=== PATIENT | female | born 1975 | race Caucasian/White ===

== ENCOUNTER 2022-03-10 09:42 | Emergency (ER) | payer OTHER, SELFPAY ==
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
[2022-03-10 09:48] VITALS: BP 145/92; PULSE 112; RESP 20; TEMP 36.8; O2SAT 97; BMI 40.7
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
--- NOTE | 2022-03-10 12:21 | PC.NURSE ---
PT EVALUATED BY PROVIDER. PT AWAKE, ALERT AND ORIENTED X 3. SKIN WARM AND DRY., RESP UNLABORED. DENIES N/V. NO ACUTE DISTRESS NOTED. +CMS, AMBULATORY , GAIT STEADY
== END 2022-03-10 12:23 | disposition home or self-care (01) ==
PROVIDERS: Emergency Provider Emergency Medicine
DX: M54.2 Cervicalgia (principal); M25.562 Pain in left knee
CPT/HCPCS: 72040; 73564; 99282; 99283

== ENCOUNTER 2024-07-23 13:00 | Outpatient (AMB) | payer BC, SELFPAY ==
--- NOTE | 2024-07-23 13:07 | MHC.PC.OV ---
Vital Signs 07/23/24 13:20 Height 5 ft 4.96 in Weight 253 lb BMI 42.1 BP 108/76 Blood Pressure Location Rt brachial Position Sitting Respiration 15 Pulse 105 H Pulse Source Pulse Oximeter Pulse Oximetry (%) 96 Oxygen Delivery Method Room Air Intake Visit Reasons: HUMAN RESOURCES GENERALIST-PE Intake Note: New patient visit [facility]man Required: No Accompanied by: Family/Other Allergies No Known Allergies [No Known Allergies*] Allergy (Verified 07/23/24 13:08) Medication List - Last Reconciled 07/23/24 by Yamila Callahan PA-C tirzepatide (weight loss) (Zepbound) mg subcut QWEEK valacyclovir (Valtrex) PO Tobacco use date assessed: 07/23/24 Dental Screening Dental Screen Date: 07/23/24 Did you have a dental visit in the last 12 months?: No Did you have a dental problem in the last 6 months where you did not have access to dental care?: Yes Was dental information given to patient?: Patient declined HPI HUMAN RESOURCES GENERALIST-PE HPI Details Patient is a 49-year-old female with a significant past medical history of hyperlipidemia, prediabetes presenting today to [facility]. She is transferring from [place]. HEENT: States that she has had decreased hearing from her left ear for about 2 years. It was happened suddenly. Denies any viral symptoms prior to this starting. Denies any antibiotic use prior to this. CV: Blood pressure today in the office is 108/76. General: Has lost 45 lbs on zepbound 10 mg. She has tried diet and exercise. She has tried diets like atkins, herbal life, and calorie restriction. Her weight has been a big stressor for her for most of her life. This has been the most effective thing that she has tried. 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 1. Little interest or pleasure in doing things: not at all 2. Feeling down, depressed, or hopeless: not at all 3. Trouble falling or staying asleep, or sleeping too much: nearly every day 4. Feeling tired or having little energy: several days 5. Poor appetite or overeating: several days 6. Feeling bad about yourself - or that you are a failure or have let yourself or your family down: not at all 7. Trouble concentrating on things, such as reading the newspaper or watching television: several days 8. Moving or speaking so slowly that other people could have noticed. Or the opposite - being so fidgety or restless that you have been moving around a lot more than usual: not at all 9. Thoughts that you would be better off or of hurting yourself in some way: not at all Total score: 6 Depression Screening Interpretation: Positive Depression Screening Follow-up: Follow-up Visit Requested and Declines treatment Depression Screening Done: Yes 71419 - PHQ-9 Billing: Yes Source: Developed by Drs. Anil Hughes, Ale Kelley, Bg Romano and colleagues, with an educational edwin from [employer]. Thrive Questionnaire Date Thrive assessed: 07/20/24 I am a: Patient What is your living situation today?: I have a steady place to live Within the past 12 months, did the food you bought not last and you didn't have the money to get more?: Never true Within the past 12 months, did you worry whether your food would run out before you got money to buy more?: Never true Do you have trouble paying for medicines?: No Do you have trouble getting transportation to medical appointments?: No Do you have trouble paying your heating and electricity bill?: No Do you have trouble taking care of your child, family member or friend?: No Do you have trouble with day-to-day activities such as bathing, preparing meals, shopping, managing finances, etc.?: No Are you currently unemployed and looking for a job?: No Are you interested in more education?: No Please select the resources that you would like help with: None Currently or been in a relationship where the following occur: I choose not to answer THRIVE Score: 0 AUDIT C Alcohol Use Questionnaire (AUDIT-C) 1. How often do you have a drink containing alcohol?: Monthly or less 2. How many drinks containing alcohol do you have on a typical day when you are drinking?: 5 or 6 3. How often do you have six or more drinks on one occasion?: Less than monthly Total Score: 4 MANOLO-7 AMB Questionnaire MANOLO-7 Date MANOLO - 7 assessed: 08/06/24 Feeling nervous, anxious, or on edge: 1 = Several days Not being able to stop or control worryin = Several days Worrying too much about different things: 1 = Several days Trouble relaxin = Several days Being so restless that it is hard to sit still: 1 = Several days Becoming easily annoyed or irritable: 1 = Several days Feeling afraid as if something awful might happen: 0 = Not at all Total MANOLO-7 score (0-4 normal; 5-9 mild; 10-14 moderate; 15-21 severe): 6 Source: Developed by Drs. Anil Hughes, Ale Kelley, Bg Romano and colleagues, with an educational edwin from [employer]. MANOLO-7 Assessment Billing MANOLO-7 Assessment Tool: MANOLO-7 Assessment 88303 Physical exam (Primary Care) Vital Signs: Last Vital Signs Pulse 105 H 07/23/24 13:20 Resp 15 07/23/24 13:20 BP 108/76 07/23/24 13:20 Pulse Ox 96 07/23/24 13:20 Oxygen Delivery Method Room Air 07/23/24 13:20 BMI result Body Mass Index 42.1 Tobacco/Smoking Status: Tobacco use Status Tobacco use date assessed 07/23/24 07/23/24 13:11 Patient Tobacco Use Status Current everyday Tobacco 07/23/24 13:23 e-Cigarette/Vaping Use Never Used 07/23/24 13:11 PHQ-9: PHQ-9 Score PHQ-9: Total score 6 07/23/24 13:11 Depression Screening Interpretation: Positive Depression Screening Follow-up: Follow-up Visit Requested and Declines treatment Thrive Assessment: Date of Thrive Assessment Date Thrive assessed 07/20/24 07/23/24 13:11 Currently or been in a relationship where the following occur: I choose not to answer Const Orientation/consciousness: patient oriented x3 HENMT Ears: hearing grossly normal bilaterally General nose exam: No nasal polyps present Face and sinus: Yes sinuses nontender Mouth: Normal oral and palatal mucosa present Eyes Pupils: Equal, round and reactive pupils present EOM: EOMs intact bilaterally Neck Neck: Yes full ROM and Yes no lymphadenopathy Thyroid: Thyroid normal Lymphatic: no lymphadenopathy noted Chest Chest palpation & inspection: normal inspection of the chest Resp Auscultation: clear to auscultation bilaterally Cardio Rate: regular rate Rhythm: regular rhythm Heart sounds: S1 normal heart sound present and S2 normal heart sound present Peripheral pulses: Peripheral pulses 2+ throughout GI Other: Soft, nontender Inspection: Yes normal to inspection Palpation (GI): Soft to palpation and Other GI palpation findings present (nontender, no cva tenderness) Auscultation: normoactive bowel sounds Rectal Exam - Female: deferred General: Yes no CVA tenderness Back/Spine/Pelvis Other: Nontender Back: no CVA tenderness Skin General skin exam: no rashes or lesions noted Neuro General: patient oriented x3, gait normal and no focal motor deficits Cranial nerves: Yes Equal, round and reactive pupils present Motor exam (neuro): 5/5 motor strength present throughout Sensory Exam: double simultaneous stimulation for sensation normal Coordination: aydqta-sf-iibr test normal and Romberg test negative Extrem General: Yes normal to inspection and Yes full ROM Psych Affect: normal affect Attitude: cooperative Thought process: Normal thought process present Thought content: Normal thought content present Insight: Good insight present (Psych) Judgement: Good judgement present (Psych) Coding Level of Care Code New Pt Level 2 (90448) New Pt Prev Care 40-64y(95533) Diagnoses Routine general medical examination at a health care facility Z00.00 Prediabetes R73.03 Dyslipidemia E78.5 Decreased hearing of left ear H91.92 Additional Codes MANOLO-7 Assessment Billing - MANOLO-7 Assessment Tool: MANOLO-7 Assessment 74001 ([id number]) PHQ-9 - 84848 - PHQ-9 Billing: Yes ([id number]) Assessment & Plan Assessment & Plan (1) Routine general medical examination at a health care facility: Code(s): Z00.00 - Encounter for general adult medical examination without abnormal findings Plan: Health maintenance reviewed. Labs ordered. Mammogram ordered Colonoscopy ordered Referral to cullet crusher and washer. (2) Prediabetes: Code(s): R73.03 - Prediabetes Category: Medical Plan: We will check labs today we will (3) Dyslipidemia: Code(s): E78.5 - Hyperlipidemia, unspecified Category: Medical Plan: Lipids ordered (4) Decreased hearing of left ear: Code(s): H91.92 - Unspecified hearing loss, left ear Category: Medical Plan: Referral to ENT Orders: Orders MM screening mammo BI Today Z12.31 - Encounter for screening mammogram for malignant neoplasm of breast Complete Blood Count Auto Diff Today E78.5 - Hyperlipidemia, unspecified, R73.03 - Prediabetes Hemoglobin A1c Today E78.5 - Hyperlipidemia, unspecified, R73.01 - Impaired fasting glucose, R73.03 - Prediabetes Liver Panel Today E78.5 - Hyperlipidemia, unspecified, R73.03 - Prediabetes TSH reflex Free T4 Today E78.5 - Hyperlipidemia, unspecified, R73.03 - Prediabetes UA CC w/rflx Micro + Cult Today E78.5 - Hyperlipidemia, unspecified, R73.03 - Prediabetes, Z13.220 - Encounter for screening for lipoid disorders Comprehensive [place]. Panel Fast Today E78.5 - Hyperlipidemia, unspecified, R73.03 - Prediabetes Vitamin B12 and Folate Today E78.5 - Hyperlipidemia, unspecified, R73.03 - Prediabetes Magnesium Today E78.5 - Hyperlipidemia, unspecified, R73.03 - Prediabetes Referrals [facility] Referral Z01.419 - Encounter for gynecological examination (general) (routine) without abnormal findings Gastroenterology Referral Z12.11 - Encounter for screening for malignant neoplasm of colon Ear/Nose/Throat Referral H91.92 - Unspecified hearing loss, left ear Medications: Discontinued cyclobenzaprine Discontinued Reason: Patient no longer taking 5 mg PO BEDTIME PRN 7 tabs 0RF muscle spasm
[2024-07-23 13:20] VITALS: BP 108/76; PULSE 105; RESP 15; O2SAT 96; BMI 42.1
== END 2024-07-23 13:59 | disposition home or self-care (01) ==
LOC: HO.HMCFM 13:00
PROVIDERS: PCP Physician Assistant; Visit Provider Physician Assistant
DX: Z00.00 Encounter for general adult medical examination without abnormal findings (principal); R73.03 Prediabetes; E78.5 Hyperlipidemia, unspecified; H91.92 Unspecified hearing loss, left ear

== ENCOUNTER → 2024-07-23 13:00 | Outpatient (BNVA) | payer BC, SELFPAY | PROVIDERS: PCP Physician Assistant; Visit Provider Physician Assistant | DX: Z00.00 Encounter for general adult medical examination without abnormal findings (principal); R73.03 Prediabetes; E78.5 Hyperlipidemia, unspecified; H91.92 Unspecified hearing loss, left ear | CPT/HCPCS: 96127 ==